=== PATIENT | female | born 1965 | race African-American/Black ===

== ENCOUNTER 2023-06-12 12:36 | Emergency (ER) | payer MEDICAID ==
[~2023-06-12] VITALS: Ht 167.6 cm; Wt 78.9 kg
[2023-06-12 12:59] VITALS: O2SAT 100
[2023-06-12] MEDS ORDERED: CYCLOBENZAPRINE 10MG TABLET PO ONE (14:30)
[2023-06-12] MEDS ORDERED: KETOROLAC 30MG/ML VIAL IM ONE (14:30)
[2023-06-12 15:08] VITALS: BP 138/91
[2023-06-12] MEDS ORDERED: LIDO700A15 TP (16:20)
[2023-06-12] MEDS ORDERED: NAPR-1176 MT (16:20)
[2023-06-12] MEDS ORDERED: CYCL5TAB MT (16:20)
[2023-06-12 16:39] VITALS: PULSE 64; RESP 14; TEMP 98.1
== END 2023-06-12 16:42 | disposition home or self-care (01) ==
LOC: ER 12:36
DX: M54.9 Dorsalgia, unspecified (principal); I10 Essential (primary) hypertension; Z98.890 Other specified postprocedural states
CPT/HCPCS: 99283; 72070; 96372; J1885